=== PATIENT | female | born 1940 | race Caucasian/White ===

== ENCOUNTER 2016-12-02 14:52 | Inpatient (IN) | payer BC, OTHER ==
--- NOTE | ~2016-12-02 | CN ---
Consultation Report [facility] [address] [place]. [address] NAME: NIHARIKA LUNSFORD : 39 STATUS : ADM IN PAT#: [id number] AGE: 76 ADM/REG DATE : 12/02/16 MR#: [id number] REPORT SERV DATE: 12/03/16 DICTATED BY: CITLALY MCCURDY DATE: 12/02/16 REPORT STATUS : Draft TRANSCRIBED BY: MODL DATE: 12/02/16 NEPHROLOGY CONSULTATION NOTE. DATE OF CONSULTATION: REASON FOR CONSULTATION: Acute kidney injury, pulmonary edema. HISTORY OF PRESENT ILLNESS: The patient is a 76-year-old, white female, who presents to [facility] with complaints of difficulty breathing for two days without chest pain, fever and has a mild cough. She was in fact recently admitted to the [facility] from 11/06 through 12/05, where she suffered hypoxic respiratory failure due to pulmonary edema. She was seen by my partners at that time for acute kidney injury that required INTEGRATION DIRECTOR followed by hemodialysis which was discontinued on 11/23. She had an admission creatinine of 3.3, the peak creatinine of 5.9, and a discharge creatinine of 1.4. She had become dehydrated and was felt to have prerenal azotemia exacerbated by SAMANTHA inhibitor, metformin, and Bactrim at that time, and again did recover her renal function. Workup included an ultrasound of her kidneys which showed a right kidney of 10.3 cm, left kidney of 11.2 cm and otherwise normal morphology. 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 She had an echocardiogram on the which showed an EF of 70%. No significant valvular disease and dialysis catheter was placed and then removed during that admission. She also required respiratory support with intubation as well as healthcare associated pneumonia during that presentation and was discharged in a weakened state [facility]. Per her , she has been eating well there and has not been indulging in high-salt diet. She has had no difficulty with breathing and has been on spironolactone 25 mg daily as well as torsemide 20 mg b.i.d. Her medications also include Norvasc 5 mg daily. She began to have increased pulmonary edema about a week ago and difficulty breathing two days ago. Today, she was given Lasix 80 mg intramuscular and transferred to the [facility] where she was given a Polanco catheter and another 80 mg of IV Lasix. She has made at least 700 mL of urine since the Polanco catheter was placed. Please note recent labs from [facility] including TSH of 0.59, free T4 7.5, a folate of greater than 20, B12 of 787, BNP from admission of 1250, negative troponin and the UA on admission showing 2+ protein, no blood, 2-5 hyaline casts. PAST MEDICAL HISTORY: Includes diabetes that is uncontrolled with an A1c of 8.7 last fall, supposed congestive heart failure though this is not in fact demonstrated on echocardiogram in 10/2016 mild mental retardation, obesity L5 compression fracture thought to be chronic, recent pneumonia, chronic thrombocytopenia due to ELISE and splenomegaly. Platelets were 45 or so on discharge from [facility], anemia of chronic disease with a hemoglobin of around 8 on discharge, pulmonary hypertension, recent urinary tract infection, acute kidney injury and recent pulmonary edema. ALLERGIES: NONE. Consultation Report [address] [address] NAME: NIHARIKA LUNSFORD : 38 STATUS : ADM IN [facility]#: [id number] AGE: 76 ADM/REG DATE : 12/02/16 MR#: [id number] REPORT SERV DATE: 12/03/16 DICTATED BY: CITLALY MCCURDY DATE: 12/02/16 REPORT STATUS : Draft TRANSCRIBED BY: KLAUDIA DATE: 12/02/16 DISCHARGE MEDICATIONS: From [facility] included DuoNebs, Norvasc 5 mg daily, Coreg 6.25 mg b.i.d., Cymbalta 30 mg daily, Neurontin 300 mg three times a day, Lopid 600 mg b.i.d., NovoLog, nystatin, Protonix 40 mg daily, Demadex 20 mg b.i.d. and Aldactone 25 mg daily. FAMILY HISTORY: Negative for renal disease. SOCIAL HISTORY: No smoking or drinking. She is currently undergoing rehab at the [facility] and she is . REVIEW OF SYSTEMS: She is thirsty. She is short of breath and coughing. She denies fevers, chills, chest pain, abdominal pain, nausea, vomiting, diarrhea, high-salt diet. She denies difficulty breathing. Otherwise, reviewed and negative. PHYSICAL EXAMINATION: VITAL SIGNS: Includes a temperature of 97.8, pulse 64, blood pressure 129/40, respirations 14, O2 saturation 96% on 4 L. GENERAL: She is an obese white female. She appears quite dysarthric. HEENT: Her conjunctivae are pale. Sclerae anicteric. NECK: She has no cervical adenopathy or thyromegaly. JVP is about 8 cm. CARDIOVASCULAR: S1, S2. Regular rate and rhythm without murmurs, rubs, or gallops. Radial pulse 1+. LUNGS: Have diffuse wheezing and rales and she appears slightly dyspneic. ABDOMEN: Soft, nontender. No definite hepatosplenomegaly or obesity. EXTREMITIES: She has 2+ peripheral edema. No definite rash although she does have some excoriated lesions. : Urine in the Polanco is currently 400 mL. LABS: Include white count of 3.7, hemoglobin of 8.6, platelets 67. Brain natriuretic peptide of 411, sodium 143, potassium 4.5, chloride 105, bicarb 26, BUN 56, creatinine 2.1. Troponin is negative. INR 1.9, calcium 8.3, magnesium 2.1. ABGs 7.4/36/81/22. Chest x-ray shows pulmonary edema. ASSESSMENT: 1. Pulmonary edema. Unclear etiology. I would not call this heart failure because her recent echocardiogram did not show either systolic or diastolic dysfunction nor did it show significant valvular disease. Her brain natriuretic peptide is in fact one-third of what it had been during her last admission, and she has no recent NSAID exposure. She denies eating high salt diet despite being in an institutionalized environment. She does have recent TSH that is normal as well. It is possible that her fluid retention pulmonary edema could be related to either liver or kidney dysfunction. She does have acute kidney injury and has a history of ELISE with some degree of splenomegaly. Given her symptoms and her worsening kidney function, I would continue IV diuretics and I would give her 160 mg of IV Lasix this evening and her volume status can be readdressed in the morning. I would hold the Aldactone. Consultation Report [place] [id number] [place] [address] NAME: NIHARIKA LUNSFORD : 39 STATUS : ADM IN [facility]#: [id number] AGE: 76 ADM/REG DATE : 12/02/16 MR#: [id number] REPORT SERV DATE: 12/03/16 DICTATED BY: CITLALY MCCURDY DATE: 12/02/16 REPORT STATUS : Draft TRANSCRIBED BY: KLAUDIA DATE: 12/02/16 2. Acute kidney injury. The patient has a recent hospitalization at [facility] where she was on SAMANTHA inhibitor, metformin and Bactrim, despite being pre renal, she appeared to have suffered an ATN type injury at that point and required hemodialysis. This was discontinued and her access removed. Her discharge creatinine on the 11/23 was 1.4, which has now risen to 2.1 with worsening volume overload. I would hold her Aldactone as well as her gemfibrozil and her Fleet's enema. I would check a CPK, hepatitis panel, SPEP, UPEP, urine eosinophils and urine protein and urine creatinine, FEUrea. 3. Diabetes, poorly controlled on insulin. 4. Obesity. 5. Hypertension, agree with holding amlodipine in the setting of worsening peripheral edema. 6. No immediate indications for dialysis tonight as she is making urine and her ABGs in fact appear that she is reasonably compensated. Case was discussed with Dr. Zamora, partners to follow in the morning. MOLLY/KLAUDIA Citlaly Mccurdy MD / [id number] CC: Segun Chapman M.D.
--- NOTE | ~2016-12-02 | IDS ---
Interim Discharge Summary [facility] [address] [place]. [address] NAME: NIHARIKA LUNSFORD : 39 STATUS : ADM IN PAT#: [id number] AGE: 76 ADM/REG DATE : 12/02/16 MR#: [id number] REPORT SERV DATE: 12/06/16 DICTATED BY: TINO ENCISO DATE: 12/05/16 REPORT STATUS : Draft TRANSCRIBED BY: MODL DATE: 12/05/16 ADMISSION DATE: 12/02/2016 DISCHARGE DATE: CONSULTANTS: Dr. Anupam Dial and Dr. Farooq Castillo, Nephrology. PROBLEM LIST: 1. Vkdyi-ai-evarfuc hypercapnic hypoxic respiratory failure. 2. Anasarca related to acute kidney injury with oliguria and nonalcoholic steatohepatitis with cirrhosis and pancytopenia. 3. Suspected aspiration pneumonia. 4. Acute kidney injury with oliguria resistant to diuretics. 5. Nonalcoholic steatohepatitis with cirrhosis, pancytopenia, prolonged INR. 6. Diabetes mellitus type 2 with A1c 5.9%. 7. Obesity with body mass index of 45.9. 8. Suspected urinary tract infection. 9. Metabolic encephalopathy. HISTORY: The patient came to the emergency room at [facility]. She was sent from the [facility] at [facility], reportedly because of shortness of breath and a chest x ray on 12/01/2016 at their facility showing mild congestive heart failure. The patient was slow to speak, somewhat confuse, giving very vague poor quality answers and her family could not give very many details either. It appears that she was hospitalized at [facility] in October. It sounds like she was on the ventilator. It is unclear if it was pneumonia or another cause. She reportedly had acute kidney injury while there and was seen by Dr. Cohen. The consult notes from Dr. Dial indicate that Dr. Cohen's note showed creatinine went from 3.3 to 5.9, but then she improved. The patient was on COURT ATTENDANT for a while and even had hemodialysis, but then improved enough that her hemodialysis was discontinued on 11/23/2016. She was at the skilled facility of the [facility]. They sent her back because of the shortness of breath. The was very pleasant and also not able to give a whole lot of details, but noted the patient having increased swelling diffusely, more drowsy, and chest congestion. It has not been here before that I could find. Arterial blood gas in the emergency room on 36% oxygen, pH 7.40, pCO2 30, pO2 81, bicarbonate 21.6. B-natriuretic was 411. Chest x-ray showed cardiomegaly, interstitial edema. She was referred to our team for inpatient care. We found where the patient had an echocardiogram on 08/25/2016 by [facility] showing normal left ventricular size and function with ejection fraction of 60%. She also had a nuclear myocardial imaging on 08/25/2016; there were PET images that revealed no ischemia and ejection fraction 74%. Current echocardiogram on 12/03/2016 was done to request specifically LVEF and right ventricular systolic pressure. Her LVEF was 57%, right ventricular systolic pressure of 41. The patient had progressive rhonchi, rales, and drowsiness. When I met her on the morning at 0724 hours on 12/03/2016, she had audible rhonchi, wet sounds throughout. Arterial blood gas done on 32% showed pH 7.27, pCO2 52, pO2 92, bicarbonate 23.3. The patient was not responding to diuretics. Nephrology saw her. Her creatinine on admission was 2.13. Interim Discharge Summary [address] [place]. [address] NAME: NIHARIKA LUNSFORD : 39 STATUS : ADM IN [facility]#: [id number] AGE: 76 ADM/REG DATE : 12/02/16 MR#: [id number] REPORT SERV DATE: 12/06/16 DICTATED BY: TINO ENCISO DATE: 12/05/16 REPORT STATUS : Draft TRANSCRIBED BY: KLAUDIA DATE: 12/05/16 Despite escalating doses of diuretics of Bumex, even as Bumex drip and Diuril, the patient was not mobilizing fluid, moved to the [facility], put her on BiPAP and Nephrology continued to see her. They had a dialysis access catheter placed and began hemodialysis on the patient to remove fluid. With this, the patient still requiring supplemental oxygen. She is currently off BiPAP. She is still lethargic. She tends to mumble with lots of tactile and verbal stimulation. She will occasionally give me her name and tell me that she is at a hospital, but she otherwise just tends to repeat things, such as "untie me, untie me" and not be able to interact in a coherent fashion. There has been no falls or trauma historically. She has a history of nonalcoholic steatohepatitis cirrhosis. She here is noted to have significant elevation of her INR between 1.8 and 2.0. We are supplementing vitamin K to see if it might correct. She has pancytopenia as part of this as well. She has reportedly seen Dr. Ko in the past for her pancytopenia. We requested office records, but have not received them yet over the weekend. With her lethargy and wet cough, we have noted her procalcitonin steadily increasing, so there was concern about aspiration. As a result, she is on Rocephin at this point in time. The initial urinalysis had some features suggestive of infection; however, it was an unclean catch with squamous epithelium of 30 and the urine culture has grown a mixture of E coli and Klebsiella. It appears each of these would be sensitive to Rocephin if she actually does have urinary tract infection; however, it is possibly that it was just a contaminant. The patient does have a Polanco catheter at this time to try to help with accurate urinary output. She does have significant obesity with body mass index of 45.6. RSG/MODL Tino Enciso M.D. / [id number] CC: Segun Chapman M.D.
--- NOTE | ~2016-12-02 | DS ---
Discharge Summary [facility] [address] [place]. [address] NAME: NIHARIKA LUNSFORD : 38 STATUS : ADM IN PAT#: [id number] AGE: 76 ADM/REG DATE : 12/02/16 MR#: [id number] REPORT SERV DATE: 12/10/16 DICTATED BY: Chip YARBROUGH DATE: 12/10/16 REPORT STATUS : Draft TRANSCRIBED BY: MODL DATE: 12/10/16 ADMISSION DATE: 12/02/2016 DISCHARGE DATE: 12/10/2016 DIAGNOSES AT TIME OF DISCHARGE: Acute kidney injury, requiring hemodialysis; cirrhosis, end- stage; hepatic encephalopathy; pancytopenia; insulin-requiring diabetes; gcirk-sk-xhuebgs respiratory failure with hypoxia and hypercapnia; hypokalemia. CONSULTS: Nephrology, Vascular Surgery. PROCEDURES: Vascular access placement and hemodialysis. BRIEF HOSPITAL COURSE: A 76-year-old female patient with complicated medical history, multiple medical issues including advanced liver disease, was admitted with respiratory failure felt secondary to anasarca and volume overload related to her underlying liver disease. Nephrology was consulted. Access was placed and the patient was tried on hemodialysis as attempt to manage her fluid and improve her quality of life. Unfortunately, despite dialysis, the patient did not do particularly well. She continued to have problems with encephalopathy and volume overload. As a result of her advanced age and multiple organ system problems, Palliative Care was involved, and ultimately, the decision was made to discontinue dialysis, remove vascular access, and involve hospice. Family was agreeable. She was made a full DNR/DNI. Their hospice agency of choice was [facility] hospice. They evaluated the patient, ultimately agreed to manage the patient upon discharge. On 12/10/2016, the patient was discharged home with [facility] hospice. The patient had previously had an NG-tube placed to give her lactulose and rifaximin, and due to her increasing ammonia levels, this will be discontinued at discharge. We will leave her Polanco catheter for comfort, to be further evaluated by [facility]. Her discharge medications until she is seen by [facility] hospice will be as follows: Coreg 6.25 b.i.d., Levemir 15 units b.i.d., Protonix 40 daily, rifaximin 550 daily, Norvasc 5 daily, DuoNeb q.6 h. p.r.n., Cymbalta 30 daily, Aldactone 25 q.a.m., Demadex 20 b.i.d. As mentioned above, further medications for symptom control and comfort to be provided by [facility]. The patient will transition to the home setting with their care today, 12/10/2016. Of note, greater than 30 minutes was required to reconcile medications, review of records, and complete discharge documents. [facility]/KLAUDIA Chip Yarbrough M.D. / [id number] Discharge Summary [address] [address] NAME: NIHARIKA LUNSFORD : 38 STATUS : ADM IN PAT#: [id number] AGE: 76 ADM/REG DATE : 12/02/16 MR#: [id number] REPORT SERV DATE: 12/10/16 DICTATED BY: Chip YARBROUGH DATE: 12/10/16 REPORT STATUS : Draft TRANSCRIBED BY: KLAUDIA DATE: 12/10/16 CC: Segun Fernando M.D.
--- NOTE | ~2016-12-02 | HP ---
History And Physical [place] [id number] [facility] [place]. [address] NAME: NIHARIKA LUNSFORD : 38 STATUS : ADM IN [facility]#: [id number] AGE: 76 ADM/REG DATE : 12/02/16 MR#: [id number] REPORT SERV DATE: 12/02/16 DICTATED BY: KRISH LORENZANA DATE: 12/02/16 REPORT STATUS : Draft TRANSCRIBED BY: MODL DATE: 12/02/16 DATE OF ADMISSION: 12/02/2016 HISTORY OF PRESENT ILLNESS: The patient is a very pleasant 76-year-old female who was recently hospitalized at [facility]. After [facility] hospitalization, she was discharge for rehabilitation to [facility] and she developed shortness of breath and lower extremity edema and presented to [facility] with difficulty breathing, being edematous, and volume overloaded. For more details regarding her previous hospitalization at [facility], the patient's reported that the patient was recently diagnosed with diagnosis of congestive heart failure and she was on hemodialysis until two weeks ago per online activist, Dr. Cohen. According to the patient's , dialysis was discontinued two weeks ago and the patient's vascular catheter was disconnected. The patient currently denies any chest pain, no shortness of breath, but she is lethargic and she has some cough with congestion. The patient received 80 mg of intravenous Lasix at halfway this morning and also she was given another dose of 80 mg intravenously today later in the emergency room. The output for a Polanco catheter, which was also placed in the emergency room was approximately 700 mL per report of Dr. Barbosa, emergency room physician. The patient denies any chest pain. No abdominal pain. She is very weak, lethargic, but she is easily aroused, and congested and coughing with her clear sputum. Her is at the bedside. She denies any constipation or diarrhea. No abdominal pain. No fever. No rash. All systems are reviewed and are negative except for stated in history of present illness. PAST MEDICAL HISTORY: Past medical history was collected from the patient's . She has congestive heart failure, diagnosed three-four months per Dr. Tyson, gin clerk. On further questioning, I will ask the patient's if it was related to heart attack, but he does not know exactly why the patient had congestive heart failure. He said that recently Dr. Tyson told him that her heart is okay. I see echocardiography report which was dated 08/25/2016, it showed normal left ventricular systolic function with estimated ejection fraction of 60%, normal right ventricular chambers and systolic function. No significant valvular regurgitation. Also, the patient has history of diabetes, history of nephropathy, chronic kidney disease, hypertension, history of thrombocytopenia which was followed by Dr. Ko at [facility]. The reason for thrombocytopenia is enlarged spleen according to patient's . PAST SURGICAL HISTORY: Includes cholecystectomy, hysterectomy, two or three surgeries on the right foot, history of ovarian cancer in 1975, status post bilateral oophorectomy. ALLERGIES: SHE IS NOT ALLERGIC TO ANY MEDICATIONS. HOME MEDICATIONS: Include Tylenol 1000 mg p.o. q.6 hours p.r.n.; albuterol ipratropium breathing treatment q.6 hours; Norvasc 5 mg a day; Dulcolax suppository 10 mg as needed for constipation; Coreg 6.25 p.o. b.i.d.; Cymbalta 30 mg every morning; Neurontin 300 mg t.i.d.; Lopid 600 mg p.o. b.i.d.; hydrocodone with acetaminophen 10/325 every six hours p.r.n. for pain, we will hold for sedation; NovoLog sliding scale; Levemir 15 units twice a day; milk History And Physical [address] [address] NAME: NIHARIKA LUNSFORD : 38 STATUS : ADM IN [facility]#: [id number] AGE: 76 ADM/REG DATE : 12/02/16 MR#: [id number] REPORT SERV DATE: 12/02/16 DICTATED BY: KRISH LORENZANA DATE: 12/02/16 REPORT STATUS : Draft TRANSCRIBED BY: MODAyanna DATE: 12/02/16 of magnesia 30 mL as needed for constipation; nystatin topical three times a day; Tamiflu 75 mg p.o. daily for 10 days was given as prophylactic for influenza; Protonix 40 mg daily; Phenergan 25 mg p.o. q.4 hours p.r.n.; spironolactone 25 mg p.o. before breakfast; torsemide 20 mg twice a day; and Fleet Enema daily. FAMILY HISTORY: Positive for stroke in a father and mother had some type of cancer. REVIEW OF SYSTEMS: All 14-point review of systems done are negative except what is stated in the history of present illness. PHYSICAL EXAMINATION: GENERAL: Morbidly obese female, not in acute distress, resting quietly. VITAL SIGNS: Blood pressure 129/40, temperature 97.8, heart rate 64, respiratory rate 14, and oxygen saturation was 96 on 4 liters nasal cannula. HEENT: Head is atraumatic and normocephalic. Conjunctivae are clear. Pupils are equal and reactive to light and accommodation. Extraocular muscles are intact. NECK: Supple. Trachea is midline. No supraclavicular or cervical lymphadenopathy. LUNGS: Coarse breath sounds bilaterally with mild rhonchi, slightly increased respiratory effort. CARDIOVASCULAR SYSTEM: Regular rate and rhythm. Point of maximal impulse not displaced. ABDOMEN: Morbidly obese with anasarca present. Soft and nontender. Positive normoactive bowel sounds. EXTREMITIES: No clubbing or cyanosis. 2+ edema. PSYCHIATRIC: Normal mood and affect. NEUROLOGIC: Mildly lethargic, but wakes up easily, can follow commands, can answer questions. Muscle strength is 5/5 bilaterally in upper and lower extremities. SKIN: Normal color and turgor. DIAGNOSTIC DATA: EKG showed normal sinus rhythm with a rate of 62, low voltage QRS, otherwise, no abnormalities. Chest x-ray showed CHF with borderline enlarged heart size with mild interstitial edema. No significant pleural effusions. LABORATORY RESULTS: Arterial blood gas showed pH of 7.4, pCO2 of 36, PO2 of 81, bicarbonate 21.6, and oxygen saturation 95.1% on 36% of inspired oxygen. Sodium 143, potassium 4.5, chloride 105, carbon dioxide 26, BUN 56, creatinine 2.13, blood sugar 128, and magnesium 2.1. Troponin less than 0.02. BNP was 411. White count 3.7, hemoglobin 8.6, hematocrit 26.8, MCV 101.1, and platelet count 67. ASSESSMENT AND PLAN: This is a morbidly obese 76-year-old female who presented with a history of congestive heart failure and chronic kidney disease two weeks ago, was released from hemodialysis, presented: 1. With acute congestive heart failure exacerbation, volume overload, and dyspnea which is currently better after she got second dose of Lasix today, but still have some congestion. I spoke with online activist, Dr. Dial, was on-call for tonight and he recommended if the patient will have another shortness of breath, to give her 80 mg of Lasix IV and he will see the patient tonight and we will follow up on her creatinine as History And Physical [address] [address] NAME: NIHARIKA LUNSFORD : 38 STATUS : ADM IN PAT#: [id number] AGE: 76 ADM/REG DATE : 12/02/16 MR#: [id number] REPORT SERV DATE: 12/02/16 DICTATED BY: KRISH LORENZANA DATE: 12/02/16 REPORT STATUS : Draft TRANSCRIBED BY: KLAUDIA DATE: 12/02/16 well. 2. Morbid obesity. 3. Abnormal creatinine, recently released from hemodialysis, likely this is her baseline creatinine now. There is a possibility that creatinine may worsen after she received two dosages of Lasix, one in the halfway and another one in the emergency room, but because of this pulmonary edema, she is needed to avoid respiratory failure. 4. Diabetes mellitus. Check hemoglobin A1c and put on NovoLog sliding scale. 5. The patient was given Tamiflu for prophylaxis, but taking into consideration decreased glomerular filtration rate, it is only 22%, we will try to avoid Tamiflu because of side effects especially with renal failure. We will check influenza A and B screen. If the patient will be positive for flu, then she will probably need Tamiflu, but at a lower dose according to kidney function. I will also hold some of her medications, which could cause sleepiness since she is lethargic, especially Neurontin and Cymbalta, but the patient's requested her Percocet as needed because if she has severe pain she needs it. I will also check CPK level and Dr. Dial will see the patient tonight. If the patient will have an increasing shortness of breath, another dose of Lasix will be given tonight. I will also request old records from [facility] and from Dr. Tyson as well as I will order echocardiogram on this patient to check her heart pumping ability and my partner will see this patient starting tomorrow morning. MG/MODL Krish Lorenzana M.D. / [id number] CC: Segun Guillen Jr, M.D.
--- NOTE | ~2016-12-02 | OP ---
Record Of Operation [facility] [address] [place]. [address] NAME: NIHARIKA HOLBROOK : 38 STATUS : ADM IN PAT#: [id number] AGE: 76 ADM/REG DATE : 12/02/16 MR#: [id number] REPORT SERV DATE: 12/07/16 DICTATED BY: JANAE SPRINGER DATE: 12/07/16 REPORT STATUS : Draft TRANSCRIBED BY: MODL DATE: 12/07/16 DATE OF PROCEDURE: 12/04/2016 PREOPERATIVE DIAGNOSIS: Renal failure, requiring hemodialysis. POSTOPERATIVE DIAGNOSIS: Renal failure, requiring hemodialysis. PROCEDURE: 1. Ultrasound-guided percutaneous access, right internal jugular vein. 2. Placement of right internal jugular vein PermCath. SURGEON: Janae Springer M.D. ANESTHESIA: Local with MAC. ESTIMATED BLOOD LOSS: 15 mL. COMPLICATIONS: None. INDICATIONS: Ms Holbrook is a pleasant female patient with prior history of transient renal failure requiring hemodialysis. However, she has returned to the hospital with renal failure and volume overload and needs urgent dialysis. I am asked to place access. DETAILS OF PROCEDURE: After informed consent was obtained, the patient was brought to the endovascular suite and placed in supine position. After administration of IV sedation, she was prepped and draped in usual sterile fashion. A time-out was performed. I commenced the procedure with ultrasound examination of right internal jugular vein. It is widely patent and compressible. Permanent image of vein saved and stored in the patient's chart. I anesthetized the skin. I accessed with entry needle and passed the J tipped guidewire into the right atrium, confirmed under fluoroscopy. I made a stab incision over the puncture site. I then anesthetized the skin on the right chest wall. I made another stab incision on right chest wall and tunneled a 23-cm straight HemoSplit catheter from the puncture site on the chest wall up to the puncture site in the neck. I then removed the needle and passed a peel-away sheath over the guidewire, confirmed the cavoatrial junction under fluoroscopy. I then removed the wire, and dilator passed the catheter through the peel-away sheath while simultaneously peeling it apart. Catheter tip came to rest in the right atrium. Both ports aspirated dark venous blood and flushed easily with heparinized saline. The catheter was secured to the skin with 2-0 nylon. Puncture site in the right side of the neck was closed with 4 Monocryl. Sterile dressings were applied. The patient tolerated the procedure well with no complications. I was present and participated in the entire case as dictated. CAROL/KLAUDIA Janae Charles Record Of [address] [address] NAME: NIHARIKA HOLBROOK : 38 STATUS : ADM IN [facility]#: [id number] AGE: 76 ADM/REG DATE : 12/02/16 MR#: [id number] REPORT SERV DATE: 12/07/16 DICTATED BY: JANAE SPRINGER DATE: 12/07/16 REPORT STATUS : Draft TRANSCRIBED BY: KLAUDIA DATE: 12/07/16 Segun Springer / [id number] CC: Segun Fernando M.D.
[2016-12-02 14:30] LABS: ALLENS TEST Pos; BE (BASE EXCESS) -2.8 MEQ/L (0 +/- 2.5); CARBOXYHEMOGLOBIN 1.3 % (0-3); DEVICE NC; HCO3 (ACTUAL BICARBONATE) 21.6 MEQ/L (23-27); HEMOBLOGIN CONTENT 9.3 G/DL (12-16); INSTRUMENT SERIAL # 8087; METHEMOGLOBIN 0.3 % (0-3); O2 CONTENT 12.4 VOL% (18-24); PCO2 (CO2 TENSION) 36 MMHG (35-45); PO2 (O2 TENSION) 81 MMHG (79-93); SAMPLE Arterial
[2016-12-02 15:26] LABS: BASOPHILS 0.3 %; BASOPHILS ABSOLUTE 0.01 10/3/uL (0.0-0.16); EOSINOPHILS 1.4 %; EOSINOPHILS ABSOLUTE 0.05 10/3/uL (0.0-0.53); HEMATOCRIT 26.8 % (36.0-48.0); HEMOGLOBIN 8.6 g/dL (12.0-16.0); LYMPHOCYTES 15.6 %; LYMPHOCYTES ABSOLUTE 0.57 10/3/uL (0.67-4.30); MANUAL DIFF NO %; MEAN CORPUS HGB CONC 32.1 g/dL (32.0-36.0); MEAN CORPUSCULAR HEMOGLOB 32.5 pg (26.0-34.0); MEAN CORPUSCULAR VOLUME 101.1 fL (80-100); MONOCYTES ABSOLUTE 0.33 10/3/uL (0.21-1.20); NEUTROPHILS 73.7 %; PLATELET COUNT 67 10/3/uL (150-400); RBC DISTRIBUTION WIDTH 18.7 % (12.0-16.0); RED CELL COUNT 2.65 10/6/uL (4.0-5.6); WHITE BLOOD CELLS 3.7 10/3/uL (4.5-10.5)
[2016-12-02 15:34] LABS: INTERNATIONAL NORMAL RATI 1.9 UNITS (-); PARTIAL THROMBO TIME 35.7 SEC (22.5-37.2); PROTIME (NOT ORD) 21.3 SEC (12.0-14.5)
[2016-12-02 15:42] LABS: ANISOCYTOSIS 1+ (5-10/OIF) (0-5/OIF); PLATELET ESTIMATE DEC (ADEQUATE)
[2016-12-02 15:43] LABS: BUN (BLOOD UREA NITROGEN) 56 MG/DL (6-23); CALCIUM, SERUM 8.3 MG/DL (8.5-10.4); CHEST PAIN PROFILE TAT 0 Hrs 21 Mins; CHLORIDE, SERUM 105 MMOL/L (96-112); CO2 (CARBON DIOXIDE) 26 MMOL/L (24-34); CREATININE 2.13 MG/DL (0.55-1.02); GFR AFRICAN AMERICAN 25 ML/MIN (>=60); GFR NON AFRICAN AMERICAN 22 ML/MIN (>=60); GLUCOSE, SERUM 128 MG/DL (60-99); POTASSIUM, SERUM 4.5 MMOL/L (3.5-5.3); SODIUM, SERUM 143 MMOL/L (135-148); TROPONIN I <0.02 NG/ML (<0.05)
[2016-12-02] MEDS ORDERED: NORV5 PO (17:58)
[2016-12-02] MEDS ORDERED: COREG6 PO (17:58)
[2016-12-02] MEDS ORDERED: DUONEB INH ×2 (17:59→18:04)
[2016-12-02] MEDS ORDERED: CYMBALTA30 PO (17:59)
[2016-12-02] MEDS ORDERED: NEUR300 PO (18:00)
[2016-12-02] MEDS ORDERED: LOPID6 PO (18:00)
[2016-12-02] MEDS ORDERED: NYSTATPOW TOP (18:01)
[2016-12-02] MEDS ORDERED: SPIRO25 PO (18:02)
[2016-12-02] MEDS ORDERED: PROTONIX PO (18:02)
[2016-12-02] MEDS ORDERED: DEMA20 PO (18:03)
[2016-12-02] MEDS ORDERED: TAMIFLU PO (18:04)
[2016-12-02] MEDS ORDERED: LEVEMIR SC (18:05)
[2016-12-02] MEDS ORDERED: NOVOLOG SC (18:06)
[2016-12-02] MEDS ORDERED: PR25 PO (18:08)
[2016-12-02] MEDS ORDERED: NORCO1 TAB PO (18:08)
[2016-12-02] MEDS ORDERED: MOMUD PO (18:09)
[2016-12-02] MEDS ORDERED: BISR PR (18:10)
[2016-12-02] MEDS ORDERED: FLEET ENEMA PR (18:10)
[2016-12-02] MEDS ORDERED: ACET500CAP PO (18:11)
[2016-12-02 22:40] LABS: PROCALCITONIN 0.34 ng/mL (<0.5)
[2016-12-02 22:44] LABS: ASCORBIC ACID (UR NOT ORDER) NEG (NEG); BILIRUBIN, URINE NEGATIVE (NEG); KETONE, URINE NEGATIVE (NEG); LEUKOCYTE ESTERASE(NOT OR MOD (NEG); WBC (NOT ORDERED) (RFLEX) > 182 (0-5)
[2016-12-02 22:46] LABS: GLYCOHEMOGLOBIN (HbA1c) 5.9 % (4.7-6.1)
[2016-12-02 22:49] LABS: INFLUENZA A SCREEN NEGATIVE (NEGATIVE); INFLUENZA B SCREEN NEGATIVE (NEGATIVE)
[2016-12-03 00:10] LABS: FOLATE 17.2 NG/ML (>5.2)
[2016-12-03 01:26] LABS: ULTRASENSITIVE TSH 0.546 MCIU/ML (0.358-3.740)
[2016-12-03 07:56] LABS: HEMATOCRIT 26.1 % (36.0-48.0); HEMOGLOBIN 8.3 g/dL (12.0-16.0); MEAN CORPUS HGB CONC 31.8 g/dL (32.0-36.0); MEAN CORPUSCULAR HEMOGLOB 31.4 pg (26.0-34.0); MEAN CORPUSCULAR VOLUME 98.9 fL (80-100); MEAN PLATELET VOLUME 12.7 fL (9.2-13.0); PLATELET COUNT 65 10/3/uL (150-400); RED CELL COUNT 2.64 10/6/uL (4.0-5.6); WHITE BLOOD CELLS 3.4 10/3/uL (4.5-10.5)
[2016-12-03 08:05] LABS: MANUAL DIFF YES %
[2016-12-03 08:25] LABS: ANISOCYTOSIS 1+ (5-10/OIF) (0-5/OIF); BAND NEUTROPHILS 3 %; EOSINOPHILS 5 %; EOSINOPHILS ABSOLUTE (CALC) 0.17 10/3/uL (0.0-0.53); LYMPHOCYTES 14 %; LYMPHOCYTES ABSOLUTE (CALC) 0.48 10/3/uL (0.67-4.30); MONOCYTES 12 %; MONOCYTES ABSOLUTE (CALC) 0.41 10/3/uL (0.21-1.20); NEUTROPHILS ABSOLUTE (CALC) 2.35 10/3/uL (2.02-8.40); PLATELET ESTIMATE DEC (ADEQUATE); SEGMENTED NEUTROPHIL (0) 66 %; TOTAL NUCLEATED CELLS 100
[2016-12-03 08:27] LABS: BUN (BLOOD UREA NITROGEN) 61 MG/DL (6-23); CHLORIDE, SERUM 105 MMOL/L (96-112); CO2 (CARBON DIOXIDE) 23 MMOL/L (24-34); CPK 36 U/L (0-200); CREATININE 2.46 MG/DL (0.55-1.02); GFR AFRICAN AMERICAN 21 ML/MIN (>=60); GFR NON AFRICAN AMERICAN 18 ML/MIN (>=60); GLUCOSE, SERUM 121 MG/DL (60-99); PHOSPHORUS, SERUM 5.3 MG/DL (2.5-4.5); POTASSIUM, SERUM 4.6 MMOL/L (3.5-5.3); SODIUM, SERUM 143 MMOL/L (135-148)
[2016-12-03 08:30] LABS: CALCIUM, SERUM 8.1 MG/DL (8.5-10.4)
[2016-12-03 09:26] LABS: PROCALCITONIN 0.85 ng/mL (<0.5)
[2016-12-03 10:28] LABS: HEPATITIS B SURFACE ANTIGEN NON-REACTIVE (NON-REACT)
[2016-12-03 10:45] LABS: HEPATITIS C ANTIBODY NON-REACTIVE (NON-REACT)
[2016-12-03 10:50] LABS: HEPATITIS B CORE AB IGM NON-REACTIVE (NON-REAC)
[2016-12-03 10:52] LABS: HEP A ANTIBODY IGM NON-REACTIVE (NON-REACT)
[2016-12-03 12:39] LABS: ALBUMIN 2.9 G/DL (3.5-5.0)
[2016-12-03 13:36] LABS: ALKALINE PHOSPHATASE 105 U/L (45-117); DIRECT BILIRUBIN 0.6 MG/DL (0.0-0.4); INDIRECT BILIRUBIN(NOT ORDER) 0.5 MG/DL (0.1-0.9); SGOT(AST) 23 U/L (5-40); SGPT(ALT) 17 U/L (5-65); TOTAL BILIRUBIN 1.1 MG/DL (0-1.2); TOTAL PROTEIN 6.6 G/DL (6.0-8.5)
[2016-12-03 19:21] LABS: ALBUMIN 2.9 G/DL (3.5-5.0); BUN (BLOOD UREA NITROGEN) 65 MG/DL (6-23); CALCIUM, SERUM 8.6 MG/DL (8.5-10.4); CHLORIDE, SERUM 103 MMOL/L (96-112); CO2 (CARBON DIOXIDE) 25 MMOL/L (24-34); CREATININE 2.76 MG/DL (0.55-1.02); GFR AFRICAN AMERICAN 18 ML/MIN (>=60); GFR NON AFRICAN AMERICAN 16 ML/MIN (>=60); GLUCOSE, SERUM 177 MG/DL (60-99); PHOSPHORUS, SERUM 5.5 MG/DL (2.5-4.5); POTASSIUM, SERUM 4.8 MMOL/L (3.5-5.3); SODIUM, SERUM 141 MMOL/L (135-148)
[2016-12-04 04:38] LABS: BASOPHILS 0.3 %; BASOPHILS ABSOLUTE 0.01 10/3/uL (0.0-0.16); EOSINOPHILS 1.3 %; EOSINOPHILS ABSOLUTE 0.04 10/3/uL (0.0-0.53); HEMATOCRIT 26.8 % (36.0-48.0); HEMOGLOBIN 8.3 g/dL (12.0-16.0); IMMATURE GRANULOCYTES 0.3 %; IMMATURE GRANULOCYTES ABSOLUTE 0.01 10/3/uL (0.0-0.11); LYMPHOCYTES 24.7 %; LYMPHOCYTES ABSOLUTE 0.77 10/3/uL (0.67-4.30); MANUAL DIFF NO %; MEAN CORPUSCULAR HEMOGLOB 31.1 pg (26.0-34.0); MEAN CORPUSCULAR VOLUME 100.4 fL (80-100); MEAN PLATELET VOLUME 13.2 fL (9.2-13.0); MONOCYTES 8.3 %; MONOCYTES ABSOLUTE 0.26 10/3/uL (0.21-1.20); NEUTROPHILS 65.1 %; NEUTROPHILS ABSOLUTE 2.03 10/3/uL (2.02-8.40); PLATELET COUNT 77 10/3/uL (150-400); RBC DISTRIBUTION WIDTH 18.7 % (12.0-16.0); RED CELL COUNT 2.67 10/6/uL (4.0-5.6); WHITE BLOOD CELLS 3.1 10/3/uL (4.5-10.5)
[2016-12-04 04:43] LABS: PROTIME (NOT ORD) 22.3 SEC (12.0-14.5)
[2016-12-04 04:51] LABS: BE (BASE EXCESS) -3.8 MEQ/L (0 +/- 2.5); CARBOXYHEMOGLOBIN 1.2 % (0-3); HCO3 (ACTUAL BICARBONATE) 23.3 MEQ/L (23-27); HEMOBLOGIN CONTENT 9.3 G/DL (12-16); INSTRUMENT SERIAL # 8087; METHEMOGLOBIN 0.4 % (0-3); O2 CONTENT 12.5 VOL% (18-24); PCO2 (CO2 TENSION) 52 MMHG (35-45); PO2 (O2 TENSION) 92 MMHG (79-93); pH 7.27 (7.37-7.43)
[2016-12-04 04:52] LABS: ALLENS TEST Pos; DEVICE NC; OPERATOR ID 17589; SAMPLE Arterial
[2016-12-04 04:58] LABS: A/G RATIO 0.7 (0.7-1.9); ALBUMIN 2.9 G/DL (3.5-5.0); ALKALINE PHOSPHATASE 105 U/L (45-117); BUN (BLOOD UREA NITROGEN) 72 MG/DL (6-23); CALCIUM, SERUM 8.6 MG/DL (8.5-10.4); CHLORIDE, SERUM 103 MMOL/L (96-112); CO2 (CARBON DIOXIDE) 23 MMOL/L (24-34); CREATININE 3.14 MG/DL (0.55-1.02); GFR AFRICAN AMERICAN 16 ML/MIN (>=60); GFR NON AFRICAN AMERICAN 14 ML/MIN (>=60); GLOBULIN 3.9 G/DL (2.5-4.1); GLUCOSE, SERUM 183 MG/DL (60-99); SGPT(ALT) 21 U/L (5-65); SODIUM, SERUM 139 MMOL/L (135-148); TOTAL BILIRUBIN 1.1 MG/DL (0-1.2); TOTAL PROTEIN 6.8 G/DL (6.0-8.5)
[2016-12-04 04:59] LABS: POTASSIUM, SERUM 5.1 MMOL/L (3.5-5.3); SGOT(AST) 28 U/L (5-40)
[2016-12-04 05:00] LABS: ANISOCYTOSIS 1+ (5-10/OIF) (0-5/OIF); MACROCYTES 1+ (5-10/OIF) (0-5/OIF); PLATELET ESTIMATE DEC (ADEQUATE)
[2016-12-04 05:01] LABS: ACANTHOCYTES OCC (0-2/OIF); POIKILOCYTOSIS 1+ (5-10/OIF) (0-5/OIF); POLYCHROMASIA 1+ (2-5/OIF) (0-1/OIF)
[2016-12-04 05:57] LABS: PROCALCITONIN 1.16 ng/mL (<0.5)
[2016-12-04 08:51] LABS: ALLENS TEST Pos; BE (BASE EXCESS) -4.3 MEQ/L (0 +/- 2.5); BIPAP 14/5 cm.H2O; CARBOXYHEMOGLOBIN 1.1 % (0-3); HCO3 (ACTUAL BICARBONATE) 21.9 MEQ/L (23-27); HEMOBLOGIN CONTENT 8.4 G/DL (12-16); INSTRUMENT SERIAL # 8083; METHEMOGLOBIN 0.2 % (0-3); O2 CONTENT 11.4 VOL% (18-24); OPERATOR ID 18801; PCO2 (CO2 TENSION) 45 MMHG (35-45); PO2 (O2 TENSION) 99 MMHG (79-93); SAMPLE Arterial
[2016-12-05 05:18] LABS: BASOPHILS 0 %; EOSINOPHILS ABSOLUTE 0.05 10/3/uL (0.0-0.53); HEMATOCRIT 26.4 % (36.0-48.0); HEMOGLOBIN 8.3 g/dL (12.0-16.0); IMMATURE GRANULOCYTES 0.8 %; IMMATURE GRANULOCYTES ABSOLUTE 0.02 10/3/uL (0.0-0.11); LYMPHOCYTES 23.9 %; MEAN CORPUS HGB CONC 31.4 g/dL (32.0-36.0); MEAN CORPUSCULAR HEMOGLOB 32.2 pg (26.0-34.0); MEAN CORPUSCULAR VOLUME 102.3 fL (80-100); MEAN PLATELET VOLUME 12.4 fL (9.2-13.0); MONOCYTES 9.2 %; MONOCYTES ABSOLUTE 0.23 10/3/uL (0.21-1.20); NEUTROPHILS 64.1 %; NEUTROPHILS ABSOLUTE 1.61 10/3/uL (2.02-8.40); PLATELET COUNT 68 10/3/uL (150-400); RBC DISTRIBUTION WIDTH 18.3 % (12.0-16.0); RED CELL COUNT 2.58 10/6/uL (4.0-5.6); WHITE BLOOD CELLS 2.5 10/3/uL (4.5-10.5)
[2016-12-05 05:19] LABS: INTERNATIONAL NORMAL RATI 1.8 UNITS (-); PROTIME (NOT ORD) 20.5 SEC (12.0-14.5)
[2016-12-05 05:32] LABS: MANUAL DIFF NO %
[2016-12-05 05:52] LABS: ANISOCYTOSIS 1+ (5-10/OIF) (0-5/OIF); MACROCYTES 1+ (5-10/OIF) (0-5/OIF); PLATELET ESTIMATE DEC (ADEQUATE)
[2016-12-05 05:53] LABS: POLYCHROMASIA 1+ (2-5/OIF) (0-1/OIF)
[2016-12-05 05:55] LABS: A/G RATIO 0.7 (0.7-1.9); ALBUMIN 2.9 G/DL (3.5-5.0); ALKALINE PHOSPHATASE 102 U/L (45-117); CALCIUM, SERUM 8.5 MG/DL (8.5-10.4); CHLORIDE, SERUM 103 MMOL/L (96-112); CO2 (CARBON DIOXIDE) 23 MMOL/L (24-34); CREATININE 2.82 MG/DL (0.55-1.02); GFR AFRICAN AMERICAN 18 ML/MIN (>=60); GFR NON AFRICAN AMERICAN 16 ML/MIN (>=60); GLOBULIN 3.9 G/DL (2.5-4.1); GLUCOSE, SERUM 186 MG/DL (60-99); POTASSIUM, SERUM 4.5 MMOL/L (3.5-5.3); SGOT(AST) 15 U/L (5-40); SGPT(ALT) 17 U/L (5-65); SODIUM, SERUM 140 MMOL/L (135-148); TOTAL BILIRUBIN 0.9 MG/DL (0-1.2); TOTAL PROTEIN 6.8 G/DL (6.0-8.5)
[2016-12-05 05:56] LABS: BUN (BLOOD UREA NITROGEN) 60 MG/DL (6-23)
[2016-12-05 14:13] LABS: BE (BASE EXCESS) -2.3 MEQ/L (0 +/- 2.5); HCO3 (ACTUAL BICARBONATE) 24.3 MEQ/L (23-27); INSTRUMENT SERIAL # 8083; PCO2 (CO2 TENSION) 50 MMHG (35-45); PO2 (O2 TENSION) 47 MMHG (79-93)
[2016-12-05 14:14] LABS: ALLENS TEST Pos; CARBOXYHEMOGLOBIN 0.9 % (0-3); HEMOBLOGIN CONTENT 9.4 G/DL (12-16); METHEMOGLOBIN 0.5 % (0-3); O2 CONTENT 10.2 VOL% (18-24); OPERATOR ID 18801; SAMPLE Arterial
[2016-12-06 04:11] LABS: ALLENS TEST Pos; BE (BASE EXCESS) -2.6 MEQ/L (0 +/- 2.5); BIPAP 14/5 cm.H2O; CARBOXYHEMOGLOBIN 1.8 % (0-3); HCO3 (ACTUAL BICARBONATE) 22.2 MEQ/L (23-27); HEMOBLOGIN CONTENT 6.5 G/DL (12-16); INSTRUMENT SERIAL # 8083; METHEMOGLOBIN 0.4 % (0-3); O2 CONTENT 8.8 VOL% (18-24); OPERATOR ID 31061; PCO2 (CO2 TENSION) 38 MMHG (35-45); PO2 (O2 TENSION) 87 MMHG (79-93); SAMPLE Arterial; pH 7.38 (7.37-7.43)
[2016-12-06 05:57] LABS: BASOPHILS 0.4 %; BASOPHILS ABSOLUTE 0.01 10/3/uL (0.0-0.16); EOSINOPHILS 0.4 %; EOSINOPHILS ABSOLUTE 0.01 10/3/uL (0.0-0.53); HEMATOCRIT 25.3 % (36.0-48.0); HEMOGLOBIN 8.1 g/dL (12.0-16.0); IMMATURE GRANULOCYTES 0.7 %; IMMATURE GRANULOCYTES ABSOLUTE 0.02 10/3/uL (0.0-0.11); LYMPHOCYTES ABSOLUTE 0.62 10/3/uL (0.67-4.30); MEAN CORPUSCULAR HEMOGLOB 32.3 pg (26.0-34.0); MEAN CORPUSCULAR VOLUME 100.8 fL (80-100); MEAN PLATELET VOLUME 12.6 fL (9.2-13.0); MONOCYTES 9.3 %; MONOCYTES ABSOLUTE 0.25 10/3/uL (0.21-1.20); NEUTROPHILS 66.2 %; NEUTROPHILS ABSOLUTE 1.79 10/3/uL (2.02-8.40); PLATELET COUNT 69 10/3/uL (150-400); RBC DISTRIBUTION WIDTH 18.5 % (12.0-16.0); RED CELL COUNT 2.51 10/6/uL (4.0-5.6); WHITE BLOOD CELLS 2.7 10/3/uL (4.5-10.5)
[2016-12-06 05:58] LABS: MANUAL DIFF NO %
[2016-12-06 06:04] LABS: INTERNATIONAL NORMAL RATI 1.6 UNITS (-); PROTIME (NOT ORD) 19.3 SEC (12.0-14.5)
[2016-12-06 06:19] LABS: CALCIUM, SERUM 8.6 MG/DL (8.5-10.4); CHLORIDE, SERUM 105 MMOL/L (96-112); CO2 (CARBON DIOXIDE) 21 MMOL/L (24-34); CREATININE 3.12 MG/DL (0.55-1.02); GFR AFRICAN AMERICAN 16 ML/MIN (>=60); GFR NON AFRICAN AMERICAN 14 ML/MIN (>=60); GLUCOSE, SERUM 164 MG/DL (60-99); SODIUM, SERUM 141 MMOL/L (135-148)
[2016-12-06 06:32] LABS: BUN (BLOOD UREA NITROGEN) 71 MG/DL (6-23)
[2016-12-06 07:49] LABS: PLATELET ESTIMATE DEC (ADEQUATE)
[2016-12-06 07:50] LABS: ANISOCYTOSIS 1+ (5-10/OIF) (0-5/OIF); MACROCYTES 1+ (5-10/OIF) (0-5/OIF)
[2016-12-06 10:22] LABS: ASCORBIC ACID (UR NOT ORDER) NEG (NEG); BILIRUBIN, URINE NEGATIVE (NEG); KETONE, URINE NEGATIVE (NEG); LEUKOCYTE ESTERASE(NOT OR LARGE (NEG)
[2016-12-06 10:24] LABS: WBC (NOT ORDERED) (RFLEX) > 182 (0-5)
[2016-12-06 12:43] LABS: A/G 1.07 RATIO (0.9-2.10); ALB RELATIVE % 51.6 % (60.0-89.0); ALBUMIN (ELECTRO) 3.51 GM/DL (3.2-5.5); ALPHA 1 (ELECTRO) 0.39 GM/DL (0.1-0.4); ALPHA 1 RELAT % (NOT ORD) 5.8 % (1.0-4.0); ALPHA 2 (ELECTRO) 0.68 GM/DL (0.5-1.10); BETA GLOBULIN (SPE) 0.67 GM/DL (0.60-1.30); BETA RELATIVE % 9.8 % (9.0-22.0); GAMMA GLOBULIN (SPE) 1.55 G/DL (0.70-1.60); GAMMA RELAT % 22.8 % (6.0-22.0)
[2016-12-06 12:53] LABS: ALBUMIN RELAT % 44.7 %
[2016-12-06 13:03] LABS: T PROTEIN (ELECT)(NOT OR 6.8 G/DL (6.0-8.5)
[2016-12-07 06:36] LABS: BASOPHILS 0.3 %; BASOPHILS ABSOLUTE 0.01 10/3/uL (0.0-0.16); EOSINOPHILS 0.6 %; EOSINOPHILS ABSOLUTE 0.02 10/3/uL (0.0-0.53); HEMATOCRIT 26.5 % (36.0-48.0); HEMOGLOBIN 8.6 g/dL (12.0-16.0); IMMATURE GRANULOCYTES 1.5 %; IMMATURE GRANULOCYTES ABSOLUTE 0.05 10/3/uL (0.0-0.11); LYMPHOCYTES 17.2 %; LYMPHOCYTES ABSOLUTE 0.58 10/3/uL (0.67-4.30); MEAN CORPUS HGB CONC 32.5 g/dL (32.0-36.0); MEAN CORPUSCULAR HEMOGLOB 32.1 pg (26.0-34.0); MEAN CORPUSCULAR VOLUME 98.9 fL (80-100); MONOCYTES 11.2 %; MONOCYTES ABSOLUTE 0.38 10/3/uL (0.21-1.20); NEUTROPHILS 69.2 %; NEUTROPHILS ABSOLUTE 2.34 10/3/uL (2.02-8.40); PLATELET COUNT 69 10/3/uL (150-400); RBC DISTRIBUTION WIDTH 18.5 % (12.0-16.0); RED CELL COUNT 2.68 10/6/uL (4.0-5.6); WHITE BLOOD CELLS 3.4 10/3/uL (4.5-10.5)
[2016-12-07 06:37] LABS: MANUAL DIFF NO %
[2016-12-07 06:42] LABS: INTERNATIONAL NORMAL RATI 1.6 UNITS (-); PROTIME (NOT ORD) 19.1 SEC (12.0-14.5)
[2016-12-07 06:49] LABS: ALBUMIN 2.6 G/DL (3.5-5.0); CALCIUM, SERUM 8.1 MG/DL (8.5-10.4); CHLORIDE, SERUM 104 MMOL/L (96-112); GLUCOSE, SERUM 161 MG/DL (60-99); SODIUM, SERUM 142 MMOL/L (135-148)
[2016-12-07 06:50] LABS: BUN (BLOOD UREA NITROGEN) 48 MG/DL (6-23); CO2 (CARBON DIOXIDE) 28 MMOL/L (24-34); CREATININE 2.12 MG/DL (0.55-1.02); GFR AFRICAN AMERICAN 25 ML/MIN (>=60); GFR NON AFRICAN AMERICAN 22 ML/MIN (>=60); PHOSPHORUS, SERUM 3.3 MG/DL (2.5-4.5)
[2016-12-07 07:05] LABS: ANISOCYTOSIS 1+ (5-10/OIF) (0-5/OIF); MACROCYTES 1+ (5-10/OIF) (0-5/OIF); PLATELET ESTIMATE DEC (ADEQUATE)
[2016-12-07 07:06] LABS: BASOPHILIC STIPPLING 1+ (2-5/OIF) (0-1/OIF)
[2016-12-07 22:52] LABS: ASCORBIC ACID (UR NOT ORDER) NEG (NEG); BILIRUBIN, URINE NEGATIVE (NEG); KETONE, URINE NEGATIVE (NEG); LEUKOCYTE ESTERASE(NOT OR LARGE (NEG); WBC (NOT ORDERED) (RFLEX) 157 (0-5)
[2016-12-08 06:11] LABS: HEMOGLOBIN 8.7 g/dL (12.0-16.0); MEAN CORPUS HGB CONC 32.2 g/dL (32.0-36.0); MEAN CORPUSCULAR HEMOGLOB 31.9 pg (26.0-34.0); MEAN CORPUSCULAR VOLUME 98.9 fL (80-100); MEAN PLATELET VOLUME 12.5 fL (9.2-13.0); PLATELET COUNT 70 10/3/uL (150-400); RBC DISTRIBUTION WIDTH 18.6 % (12.0-16.0); RED CELL COUNT 2.73 10/6/uL (4.0-5.6); WHITE BLOOD CELLS 3.6 10/3/uL (4.5-10.5)
[2016-12-08 06:13] LABS: MANUAL DIFF YES %
[2016-12-08 06:45] LABS: ANISOCYTOSIS 1+ (5-10/OIF) (0-5/OIF); BAND NEUTROPHILS 4 %; EOSINOPHILS 1 %; EOSINOPHILS ABSOLUTE (CALC) 0.04 10/3/uL (0.0-0.53); LYMPHOCYTES 10 %; LYMPHOCYTES ABSOLUTE (CALC) 0.36 10/3/uL (0.67-4.30); MONOCYTES 6 %; MONOCYTES ABSOLUTE (CALC) 0.22 10/3/uL (0.21-1.20); NEUTROPHILS ABSOLUTE (CALC) 2.99 10/3/uL (2.02-8.40); PLATELET ESTIMATE DEC (ADEQUATE); SEGMENTED NEUTROPHIL (0) 79 %; TOTAL NUCLEATED CELLS 100
[2016-12-08 06:46] LABS: POLYCHROMASIA 1+ (2-5/OIF) (0-1/OIF)
[2016-12-08 07:43] LABS: ALLENS TEST Pos; BE (BASE EXCESS) 4.6 MEQ/L (0 +/- 2.5); DEVICE NC; HEMOBLOGIN CONTENT 9.8 G/DL (12-16); INSTRUMENT SERIAL # 35151; METHEMOGLOBIN 0.6 % (0-3); O2 CONTENT 13.2 VOL% (18-24); OPERATOR ID 32214; PCO2 (CO2 TENSION) 43 MMHG (35-45); PO2 (O2 TENSION) 82 MMHG (79-93); SAMPLE Arterial; pH 7.45 (7.37-7.43)
[2016-12-08 08:00] LABS: ALBUMIN 2.3 G/DL (3.5-5.0); CALCIUM, SERUM 8.1 MG/DL (8.5-10.4); CHLORIDE, SERUM 106 MMOL/L (96-112); CO2 (CARBON DIOXIDE) 28 MMOL/L (24-34); PHOSPHORUS, SERUM 2.4 MG/DL (2.5-4.5)
[2016-12-08 08:02] LABS: BUN (BLOOD UREA NITROGEN) 32 MG/DL (6-23); CREATININE 1.61 MG/DL (0.55-1.02); GFR AFRICAN AMERICAN 35 ML/MIN (>=60); GFR NON AFRICAN AMERICAN 31 ML/MIN (>=60); GLUCOSE, SERUM 108 MG/DL (60-99); SODIUM, SERUM 145 MMOL/L (135-148)
[2016-12-09 05:15] LABS: BASOPHILS 0.2 %; BASOPHILS ABSOLUTE 0.01 10/3/uL (0.0-0.16); EOSINOPHILS 0.2 %; EOSINOPHILS ABSOLUTE 0.01 10/3/uL (0.0-0.53); HEMATOCRIT 27.1 % (36.0-48.0); HEMOGLOBIN 8.6 g/dL (12.0-16.0); IMMATURE GRANULOCYTES 1.3 %; IMMATURE GRANULOCYTES ABSOLUTE 0.06 10/3/uL (0.0-0.11); LYMPHOCYTES 14.7 %; LYMPHOCYTES ABSOLUTE 0.68 10/3/uL (0.67-4.30); MEAN CORPUS HGB CONC 31.7 g/dL (32.0-36.0); MEAN CORPUSCULAR HEMOGLOB 30.9 pg (26.0-34.0); MEAN CORPUSCULAR VOLUME 97.5 fL (80-100); MEAN PLATELET VOLUME 12.4 fL (9.2-13.0); MONOCYTES ABSOLUTE 0.28 10/3/uL (0.21-1.20); NEUTROPHILS 77.6 %; NEUTROPHILS ABSOLUTE 3.59 10/3/uL (2.02-8.40); PLATELET COUNT 66 10/3/uL (150-400); RBC DISTRIBUTION WIDTH 18.6 % (12.0-16.0); RED CELL COUNT 2.78 10/6/uL (4.0-5.6); WHITE BLOOD CELLS 4.6 10/3/uL (4.5-10.5)
[2016-12-09 05:24] LABS: MANUAL DIFF NO %
[2016-12-09 05:32] LABS: CALCIUM, SERUM 7.9 MG/DL (8.5-10.4); CHLORIDE, SERUM 107 MMOL/L (96-112); CO2 (CARBON DIOXIDE) 30 MMOL/L (24-34); CREATININE 1.47 MG/DL (0.55-1.02); GFR AFRICAN AMERICAN 39 ML/MIN (>=60); GFR NON AFRICAN AMERICAN 34 ML/MIN (>=60); SODIUM, SERUM 148 MMOL/L (135-148)
[2016-12-09 05:43] LABS: BUN (BLOOD UREA NITROGEN) 38 MG/DL (6-23); GLUCOSE, SERUM 145 MG/DL (60-99); POTASSIUM, SERUM 2.7 MMOL/L (3.5-5.3)
[2016-12-09 06:36] LABS: ANISOCYTOSIS 1+ (5-10/OIF) (0-5/OIF); BAND NEUTROPHILS 7 %; EOSINOPHILS 2 %; EOSINOPHILS ABSOLUTE (CALC) 0.09 10/3/uL (0.0-0.53); LYMPHOCYTES 17 %; LYMPHOCYTES ABSOLUTE (CALC) 0.78 10/3/uL (0.67-4.30); MONOCYTES 5 %; MONOCYTES ABSOLUTE (CALC) 0.23 10/3/uL (0.21-1.20); PLATELET ESTIMATE DEC (ADEQUATE); SEGMENTED NEUTROPHIL (0) 69 %; TOTAL NUCLEATED CELLS 100
[2016-12-09 06:37] LABS: HELMET CELLS OCC (0-2/OIF); MACROCYTES 1+ (5-10/OIF) (0-5/OIF); POLYCHROMASIA 1+ (2-5/OIF) (0-1/OIF); TARGET CELLS OCC (1-2/OIF) (0-1/OIF)
[2016-12-09 06:38] LABS: TEARDROP SHAPED RBCS OCC (0-2/OIF)
[2016-12-10 06:14] LABS: ALBUMIN 2.3 G/DL (3.5-5.0); BUN (BLOOD UREA NITROGEN) 41 MG/DL (6-23); CALCIUM, SERUM 7.8 MG/DL (8.5-10.4); CHLORIDE, SERUM 109 MMOL/L (96-112); CO2 (CARBON DIOXIDE) 30 MMOL/L (24-34); GFR AFRICAN AMERICAN 46 ML/MIN (>=60); GFR NON AFRICAN AMERICAN 40 ML/MIN (>=60); GLUCOSE, SERUM 151 MG/DL (60-99); PHOSPHORUS, SERUM 1.7 MG/DL (2.5-4.5); SODIUM, SERUM 149 MMOL/L (135-148)
[2016-12-10 06:16] LABS: POTASSIUM, SERUM 2.6 MMOL/L (3.5-5.3)
== END 2016-12-11 10:01 | disposition hospice, home (50) | DRG 682 ==
LOC: ER 14:52 → 5NO 19:43 → IMCU 12-03 16:31 → 5NO 12-07 18:43
PROVIDERS: Emergency Medicine; Hospitalist; Internal Medicine; Internal Medicine Nephrology
PROC: 05HM33Z Insertion of Infusion Device into Right Internal Jugular Vein, Percutaneous Approach (ICD-10-PCS; 2016-12-04)
PROC: B543ZZA Ultrasonography of Right Jugular Veins, Guidance (ICD-10-PCS; 2016-12-04)
PROC: 5A1D60Z (ICD-10-PCS; principal; 2016-12-06)
DX: N17.9 Acute kidney failure, unspecified (principal); J96.21 Acute and chronic respiratory failure with hypoxia; K72.00 Acute and subacute hepatic failure without coma; J69.0 Pneumonitis due to inhalation of food and vomit; J96.22 Acute and chronic respiratory failure with hypercapnia; D61.818 Other pancytopenia; Z68.42 Body mass index [BMI] 45.0-49.9, adult; N39.0 Urinary tract infection, site not specified; K75.81 Nonalcoholic steatohepatitis (NASH); K74.69 Other cirrhosis of liver; E11.9 Type 2 diabetes mellitus without complications; E66.01 Morbid (severe) obesity due to excess calories; Z51.5 Encounter for palliative care; E87.6 Hypokalemia; Z79.4 Long term (current) use of insulin; E86.0 Dehydration
CPT/HCPCS: 36558; 36600; 71010; 74000; 76937; 77001; 80048; 80053; 80069; 80074; 80076; 81001; 82140; 82550; 82570; 82607; 82746; 82805; 82962; 83036; 83735; 83880; 84132; 84145; 84155; 84156; 84165; 84166; 84443; 84484; 84540; 85025; 85610; 85730; 87077; 87086; 87186; 87389; 87641; 87804; 89190; 93005; 93306; 94640; 94660; 96374; 99291; A9270-GY; C1750; G0257; J1205; J1940; J2250; J3010